=== PATIENT | female | born 1945 | race Caucasian/White ===

== ENCOUNTER → 2017-07-18 | Outpatient (CLI) | payer OTHER ==
[~2017-07-18] MED LIST: ADULT LOW DOSE81 MG PO; AMARYL4 MG PO; AZITHROMYCIN 6600 M1 PO; BACTRIM DS TAB1 EACH PO; BENICAR40 MG PO; BENTYL 10 MG CA10 M1 PO; CALCIUM 600 +1 EAC1 PO; CARDIZEM CD180 MG PO; CARDIZEM CD360 MG PO; CELEXA 20 MG TA20 MG PO; CENTRUM SILVER1 EAC4 PO; COUMADIN 3 MG TA3 MG PO; COUMADIN 5 MG TA5 M1 PO; D3 DOTS2000 UNIT PO; FISH OIL 1,0001 EAC5 PO; GLUCOPHAGE1000 MG PO; GLUCOPHAGE500 MG PO; LANSOPRAZOLE30 MG PO; LEVOTHROID PO; LEVOTHYROXINE100 MC1 PO; LIPITOR40 MG PO; LIPOFEN150 MG PO; LIPOFEN50 MG PO; LOMOTIL TABLET1 EACH PO; MAG-OX 400 TAB400 M1 PO; MAGNESIUM OXID200 MG PO; MINOCIN100 MG PO; NEURONTIN 300300 M1 PO; NORCO 10-325 T1 EACH PO; PREVACID 24HR15 MG PO; PYRIDIUM200 M2 PO; SYNTHROID100 MCG PO; TIROSINT25 MCG PO; VICODIN ES TAB1 EACH; XANAX 0.5 MG0.5 MG PO; XARELTO20 MG PO; [UNRECOGNIZED DRUG - OTHER] PO
== END ==
LOC: M.ULTRA 14:59
DX: I82.411 Acute embolism and thrombosis of right femoral vein (principal); Z88.8 Allergy status to other drugs, medicaments and biological substances

== ENCOUNTER → 2018-04-30 | Outpatient (CLI) | payer OTHER ==
[2018-04-30 12:05] LABS: CALCIUM 9.5 mg/dL (8.5-10.1); CREATININE 1.2 mg/dL (0.6-1.3); POTASSIUM 4.4 mmol/L (3.5-5.1)
== END ==
LOC: M.LAB 11:01
PROVIDERS: Registered Nurse
DX: I10 Essential (primary) hypertension (principal)

== ENCOUNTER → 2018-05-08 | Outpatient (CLI) | payer OTHER ==
--- NOTE | 2018-05-08 14:37 | 2DMMODE ---
[place] [address] 2 D/M-MODE ECHOCARDIOGRAM Name: KIERRA STANFORD Room: [facility]#: [id number] Admission: 05/08/18 Attend Phys: Daria Gandara Discharge: Date of : 49 Date of Service: 05/08/18 1437 Report #: [id number] THIS REPORT FOR: //name// APPROVED REPORT Study performed: 05/08/2018 09:28:12 EXAM: Comprehensive 2D, Doppler, and color-flow Echocardiogram Patient Location: Out-Patient BSA: 2.22 HR: 58 bpm BP: 128/52 mmHg Other Information Study Quality: Good Indications Atrial Fibrillation 2D Dimensions IVSd: 14.84 (7-11mm) LVOT Diam: 20.73 (18-24mm) LVDd: 45.67 mm PWd: 12.30 (7-11mm) Ascending Ao: 30.59 (22-36mm) LVDs: 28.20 (25-40mm) Aortic Root: 27.65 mm Volumes Left Atrial Volume (Systole) LA ESV Index: 28.50 mL/m2 Aortic Valve AoV Peak Juan Manuel.: 1.71 m/s AO Peak Gr.: 11.63 mmHg LVOT Max P.13 mmHg AO Mean Gr.: 5.55 mmHg LVOT Mean P.59 mmHg LVOT Max V: 1.33 m/s AO V2 VTI: 32.48 cm LVOT Mean V: 0.71 m/s FARZAD (VTI): 2.97 cm2 LVOT V1 VTI: 28.61 cm Mitral Valve E/A Ratio: 1.10 MV Decel. Time: 258.99 ms MV E Max Juan Manuel.: 0.75 m/s MV PHT: 75.11 ms MVA (PHT): 2.93 [place]2 [place] [address] 2 D/M-MODE ECHOCARDIOGRAM Name: KIERRA STANFORD Room: [facility]#: [id number] Admission: 05/08/18 Attend Phys: Daria Gandara Discharge: Date of : 49 Date of Service: 05/08/18 1437 Report #: [id number] TDI E/Lateral E': 6.82 E/Medial E': 7.50 Medial E' Juan Manuel.: 0.10 m/s Lateral E' Juan Manuel.: 0.11 m/s Pulmonary Valve PV Peak Juan Manuel.: 1.16 m/s PV Peak Gr.: 5.34 mmHg Tricuspid Valve RAP Estimate: 5.00 mmHg TR Peak Gr.: 23.11 mmHg RVSP: 28.11 mmHg PA Pressure: 28.11 mmHg Left Ventricle The left ventricle is normal size. There is normal LV segmental wall motion. Mild concentric left ventricular hypertrophy. Left ventricular systolic function is normal. LVEF is 55-60%. Transmitral Doppler flow pattern suggests impaired LV relaxation. Right Ventricle The right ventricle is normal size. The right ventricular systolic function is normal. Atria Left atrium is mildly dilated. The right atrium size is normal. Aortic Valve Aortic valve is mildly calcified. No aortic regurgitation is present. There is no aortic valvular stenosis. Mitral Valve Mild mitral annular calcification. There is no mitral valve regurgitation noted. No evidence of mitral valve stenosis. Tricuspid Valve The tricuspid valve is normal in structure. Mild tricuspid regurgitation. The RVSP is 35 mmHg. Pulmonic Valve The pulmonary valve is normal in structure. There is no pulmonic valvular regurgitation. Great Vessels The aortic root is normal in size. IVC [place] [address] 2 D/M-MODE ECHOCARDIOGRAM Name: KIERRA STANFORD Room: [facility]#: [id number] Admission: 05/08/18 Attend Phys: Daria Gandara Discharge: Date of : 49 Date of Service: 05/08/18 1437 Report #: [id number] collapses >50% with inspiration. Pericardium There is no pericardial effusion. <Conclusion> The left ventricle is normal size. Mild concentric left ventricular hypertrophy. Left ventricular systolic function is normal. LVEF is 55-60%. Transmitral Doppler flow pattern suggests impaired LV relaxation. Left atrium is mildly dilated. Aortic valve is mildly calcified. Mild mitral annular calcification. Mild tricuspid regurgitation. The RVSP is 35 mmHg. IVC is normal in size and collapses >50% with inspiration. <ELECTRONICALLY SIGNED> By: Blair Collins MD, FACC 05/08/18 1437 1437 1437 Blair Collins MD, FACC /INF
== END ==
LOC: M.CRD 09:00
DX: I07.1 Rheumatic tricuspid insufficiency (principal); I35.0 Nonrheumatic aortic (valve) stenosis; I48.0 Paroxysmal atrial fibrillation

== ENCOUNTER → 2019-06-07 | Outpatient (CLI) | payer OTHER ==
[~2019-06-07] VITALS: Ht 170.2 cm; Wt 111.6 kg
[2019-06-07] VITALS (7 sets, daily range): BP systolic 131–154; BP diastolic 64–76
[~2019-06-07] MED LIST changes: +ACIPHEX 20 MG T20 MG PO; -CARDIZEM CD180 MG PO; +DILTIAZEM 24HR240 M1 PO; -LIPITOR40 MG PO; +LIPITOR80 MG PO; +MIDAMOR 5MG TABL5 M1 PO; +NITROSTAT0.4 M1 SUBLING
[2019-06-07 10:20] LABS: HEMATOCRIT 38.8 % (37.0-47.0); HEMOGLOBIN 13.6 gm/dL (12.0-15.0); MCH 32.4 pg (26.0-34.0); MCHC 35.1 g/dL (28.0-37.0); MCV 92.5 fL (80.0-100.0); MPV 8.3 fl. (7.2-11.1); RBC 4.19 mil/uL (4.20-5.00); RDW-CV 13.1 % (10.5-14.5); WBC 7.1 thou/uL (4.0-11.0)
[2019-06-07 10:30] LABS: ANION GAP 11 mmol/L (7-16); APTT 25.2 Seconds (25.0-31.3); BUN 16 mg/dL (7-18); CALCIUM 8.9 mg/dL (8.5-10.1); CHLORIDE 104 mmol/L (98-107); CO2 27 mmol/L (21-32); CREATININE 1.2 mg/dL (0.6-1.3); GLUCOSE 125 mg/dL (70-99); INR 1.1; POTASSIUM 4.2 mmol/L (3.5-5.1); SODIUM 142 mmol/L (136-145)
[2019-06-07 10:34] LABS: ALBUMIN 3.7 g/dL (3.4-5.0); ALKALINE PHOSPHATASE 75 U/L (46-116); CHOLESTEROL 195 mg/dL (<200); HDL CHOLESTEROL 48 mg/dL (>40); LDL CHOLESTEROL 116 mg/dL (<100); SGOT 31 U/L (15-37); SGPT 34 U/L (30-65); TC:HDL 4.1 Ratio (Not establshd); TOTAL BILIRUBIN 0.5 mg/dL (<0.1-1.0); TOTAL PROTEIN 7.1 g/dL (6.4-8.2); TRIGLYCERIDE 159 mg/dL (<150); VLDL 32 mg/dL (<40)
[2019-06-07 10:35] LABS: SERUM ASSESSMENT Clear
--- NOTE | 2019-06-07 13:40 | CARD ---
[address] [address] CARDIAC CATH REPORT Name: KIERRA STANFORD [id number] Admission: 06/07/19 Attend Phys: Junaid Rodriguez MD, F Discharge: Date of : 49 Report #: [id number] THIS REPORT FOR: //name// cc: Bc Thomas Steve T. DO ~ APPROVED REPORT Study performed: 06/07/2019 10:05:37 Patient Details Patient Status: Out-Patient Room #: The patient is a 74 year-old female Event Personnel Junaid Rodriguez Welt Butter Hand, Krysta Carey Keeler Polygraph Operator, Rosy Joiner RN Keeler Polygraph Operator, Juliana Duong RTR Scrub, Kasandra Kay RTR Monitor Procedures Performed Art Access - R radial artery, Left Heart Cath w/or w/o Coronaries LHC , Hemostasis with Hemoband Indication Atrial fibrillation, Positive stress test, Chest pain Risk Factors Hypercholesterolemia, Coronary Artery DiseaseHypertension Admission/Lab Medications/Medications given during procedure Heparin Unfract., Oxygen Nasal cannula 2 l per min, Nitroglycerin IA bolus 600 mcg total, Verapamil IA bolus 7.5 mg total, Heparin IV bolus 5000 units Procedure Narrative The patient was brought electively to the Cardiac Catheterization Laboratory and was prepped and draped in a sterile manner. The right wrist was infiltrated with 2% Lidocaine subcutaneous anesthesia. A 6F Slender Mather sheath was inserted into the right radial artery. Coronary angiography was performed using coronary diagnostic catheters. The right coronary system was accessed and visualized with a 5F JR4 catheter. The left coronary system was accessed and visualized with a 5F JL3.5 catheter. The left ventricle was accessed and visualized with a 5F JR4 catheter. Left ventricular/Aortic Valve gradient assessed via catheter pullback. [place] [address] CARDIAC CATH REPORT Name: KIERRA STANFORD Room: [facility]#: [id number] Admission: 06/07/19 Attend Phys: Junaid Rodriguez MD, F Discharge: Date of : 49 Report #: [id number] with a 6 Fr 27cm Vasc TR band. The patient tolerated the procedure well and there were no complications associated with the procedure. There was no hematoma. Left ventricular pressures and pullback recorded only. No ventriculogram obtained. Due to spasm of the radial artery, recommend future cardiac catheterization by performed from the femoral artery. Intraoperative Conscious Sedation Sedation start time: 11:51 Case end Time: 12:20 Fentanyl 50 mcg Versed 4 mg Fluoro Time: 3.5 minutes Dose: DAP 70452 cGycm2 1300 mGy Contrast Type and Amount: Visipaque 50 ml Coronary Angiography The patient's coronary anatomy is right dominant. [place] Artery Percent Stenosis Left Main: 0 % Prox LAD: 30 % Mid/Distal LAD: 60 % Circumflex: 40 % RCA: 30 % Ramus: 50 % Left Ventriculography Left Ventriculography was not performed. Hemodynamics The aortic pressure is 144/71 mmHg with a mean of 97 mmHg. The left ventricular pressure is 145/10 mmHg with a mean of mmHg. The left ventricular end diastolic pressure is 20 mmHg. There was no gradient across the aortic valve upon pullback. Pullback from the left ventricle to the aorta revealed no gradient across the aortic valve. Conclusion 1. diffuse CAD with maximal stenosis of 60% in the mid lad, and 40% in the proximal circumflex artery. 2. suspect noncardiac chest pain and a false positive cardiolite stress test. Recommendations Aggressive Medical Therapy <ELECTRONICALLY SIGNED> By: Junaid Rodriguez MD, [facility] 06/07/19 1338 1338 [id number] Rodriguez MD, FACC /INF
--- NOTE | 2019-06-21 12:07 | EKG ---
[place] [address] ELECTROCARDIOGRAM REPORT Name: KIERRA STANFORD Room: [facility]#: [id number] Admission: 06/07/19 Attend Phys: Junaid Rodriguez MD Discharge: Date of : 49 Date of Service: 06/07/19 1020 Report #: [id number] THIS REPORT FOR: //name// [facility] Test Date: 2019-06-07 Test Time: 10:20:49 Pat Name: KIERRA STANFORD Department: Room: Gender: F Stock Buyer: : 1945 Requested By: Junaid Rodriguez Order Number: [id number] Reading MD: Junaid Rodriguez Measurements Intervals [place] Rate: 70 P: [place]: QRS: 50 QRSD: 64 T: 102 QT: 624 QTc: 674 Interpretive Statements Atrial fibrillation Abnormal R-wave progression, early transition Nonspecific T abnormalities, lateral leads Prolonged QT interval Compared to ECG 02/26/2016 10:09:01 T-wave abnormality now present Prolonged QT interval now present Sinus rhythm no longer present Electronically Signed On 06-07-2019 14:36:37 CDT by Junaid Rodriguez [email or web address] <ELECTRONICALLY SIGNED> By: Junaid Rodriguez MD, FACC 06/07/19 1436 1020 1020 Junaid Rodriguez MD, FAC /EPI
== END | disposition home or self-care (01) ==
LOC: M.CL 09:23
PROVIDERS: Internal Medicine Cardiovascular Disease
DX: R07.9 Chest pain, unspecified (principal); R94.39 Abnormal result of other cardiovascular function study; I25.10 Atherosclerotic heart disease of native coronary artery without angina pectoris; I48.91 Unspecified atrial fibrillation

== ENCOUNTER → 2019-08-16 | Outpatient (CLI) | payer OTHER ==
--- NOTE | 2019-08-26 07:23 | SLEEP ---
[address] [address] SLEEP STUDY REPORT Name: ABDOULAYEKIERRA J Room: [facility]#: [id number] Admission: 08/16/19 Attend Phys: Bc Thomas DO Discharge: Date of : 49 Report #: [id number] THIS REPORT FOR: //name// CC: Bc Thomas DO This study has been reviewed in its entirety by a board certified sleep specialist DATE OF SERVICE: 08/16/2019 HOME SLEEP STUDY ATTENDING PHYSICIAN: Bc Thomas DO. The patient is a 74-year-old, who weighs 250 pounds with a BMI of 39.2. The patient's [place] score was 2. The patient underwent home sleep study performed at [facility]. Total recording time was 498 minutes. During the night study, the patient had 7 obstructive apneas, no central or mixed apneas. There were 95 hypopneas. The patient's AHI was 12.8 per hour. No supine sleep recorded. Nocturnal oximetry study revealed an average oxygen saturation of 92% with lowest of 80%. 28 minutes were spent in oxygen saturation less than 90%. Mean heart rate was 59 beats per minute with a maximum of 93 beats per minute. IMPRESSION: 1. Mild obstructive sleep apnea at an AHI of 12.8 per hour. 2. Nocturnal hypoxia secondary to obstructive sleep apnea. RECOMMENDATIONS: 1. The patient has mild YUSUF. If the patient is clinically symptomatic or has comorbid conditions, then consider treatment of sleep apnea with either CPAP versus oral appliance. 2. Weight loss is strongly advised. 3. Avoid [employer] depressants. 4. Cautioned regarding driving until symptoms of sleep apnea resolve with the above recommendations. <ELECTRONICALLY SIGNED> By: Porter Chaing MD 08/26/19 0723 1655 1903Ageri Chiang MD /nt
== END ==
LOC: M.SLEEPLAB 11:00
DX: G47.33 Obstructive sleep apnea (adult) (pediatric) (principal); I10 Essential (primary) hypertension; I48.0 Paroxysmal atrial fibrillation; E66.01 Morbid (severe) obesity due to excess calories; R09.02 Hypoxemia

== ENCOUNTER → 2020-11-17 | Outpatient (CLI) | payer OTHER | LOC: M.LAB 12:26 | PROVIDERS: ATTEND Orthopaedic Surgery | DX: Z01.812 Encounter for preprocedural laboratory examination (principal); Z20.822 Contact with and (suspected) exposure to COVID-19 ==

== ENCOUNTER → 2020-12-25 | Outpatient (CLI) | payer OTHER ==
[~2020-12-25] MED LIST changes: +CARVEDILOL12.5 MG PO; +EUTHYROX112 MCG PO; +HIPREX1 GM PO; +NEURONTIN 300M300 M2 PO; +NEXIUM40 MG PO; +NORVASC5 MG PO; +SPIRONOLACTONE25 MG PO; +VITAMIN C1000 MG PO; +ZETIA10 MG PO; +ZINC50 M3 PO
== END ==
LOC: M.MRI 11:15
PROVIDERS: ATTEND Orthopaedic Surgery
DX: S83.241A Other tear of medial meniscus, current injury, right knee, initial encounter (principal); M25.461 Effusion, right knee; M71.21 Synovial cyst of popliteal space [Baker], right knee; M23.91 Unspecified internal derangement of right knee; X58.XXXA Exposure to other specified factors, initial encounter; Y93.89 Activity, other specified; Y92.89 Other specified places as the place of occurrence of the external cause; Y99.8 Other external cause status

== ENCOUNTER → 2021-01-12 | Outpatient (CLI) | payer OTHER ==
[2021-01-12 11:08] LABS: ABSOLUTE BASOPHILS 0.1 thou/uL (0.0-0.2); ABSOLUTE EOSINOPHILS 0.1 thou/uL (0.0-0.7); ABSOLUTE LYMPHOCYTES 1.1 thou/uL (0.8-5.3); ABSOLUTE MONOCYTES 0.5 thou/uL (0.0-1.2); BASOPHILS 1.1 %; EOSINOPHILS 1.8 %; HEMATOCRIT 36.3 % (37.0-47.0); HEMOGLOBIN 12.4 gm/dL (12.0-15.0); LYMPHOCYTES 16.2 %; MCH 31.8 pg (26.0-34.0); MCHC 34.2 g/dL (28.0-37.0); MCV 93.1 fL (80.0-100.0); MONOCYTES 7.6 %; MPV 7.8 fl. (7.2-11.1); NUCLEATED RBCS 0 /100WBC; PLATELET COUNT* 174 thou/uL (150-400); POLYS 73.3 %; RDW-CV 13.2 % (10.5-14.5); WBC 6.9 thou/uL (4.0-11.0)
[2021-01-12 11:19] LABS: URINE BILIRUBIN NEGATIVE (Negative); URINE BLOOD NEGATIVE (Negative); URINE CLARITY CLEAR; URINE COLOR YELLOW; URINE GLUCOSE-RANDOM NEGATIVE (Negative); URINE KETONES NEGATIVE (Negative); URINE LEUKOCYTES-REFLEX NEGATIVE (Negative); URINE NITRITE-REFLEX NEGATIVE (Negative); URINE PROTEIN TRACE (Negative); URINE SPECIFIC GRAVITY >= 1.030 (1.005-1.030); URINE UROBILINOGEN 0.2 E.U./dl (0.2-1.0)
[2021-01-12 11:20] LABS: ALBUMIN 3.7 g/dL (3.4-5.0); CALCIUM 9.2 mg/dL (8.5-10.1); POTASSIUM 4.6 mmol/L (3.5-5.1); TOTAL BILIRUBIN 0.6 mg/dL (<0.1-1.0); TOTAL PROTEIN 7.3 g/dL (6.4-8.2)
[2021-01-12 11:29] LABS: INR 1.1; PROTIME 11.6 Seconds (9.20-11.50)
[2021-01-12 11:35] LABS: CHOLESTEROL 171 mg/dL (<200); HDL CHOLESTEROL 44 mg/dL (>40); LDL CHOLESTEROL 97 mg/dL (<100); TC:HDL 3.9 Ratio (Not establshd); TRIGLYCERIDE 151 mg/dL (<150); VLDL 30 mg/dL (<40)
[2021-01-12 11:36] LABS: SERUM ASSESSMENT Clear
== END ==
LOC: M.LAB 09:32
PROVIDERS: ATTEND Orthopaedic Surgery
DX: Z01.818 Encounter for other preprocedural examination (principal); Z01.812 Encounter for preprocedural laboratory examination; M17.11 Unilateral primary osteoarthritis, right knee

== ENCOUNTER 2021-01-19 05:58 | Observation (INO) | payer OTHER ==
[~2021-01-19] VITALS: Ht 240 cm; Wt 108.9 kg
--- NOTE | ~2021-01-19 | OP ---
[address] [address] OPERATIVE REPORT Name: KIERRA STANFORD Room: [address] Jess#: [id number] Admission: 01/19/21 Attend Phys: Nicholas Torres Discharge: Date of : 49 Report #: [id number] THIS REPORT FOR: cc: Bc Thomas Steve T. DO Greiner, Robert F. II DO ~ DATE OF SURGERY: 01/19/2021 PREOPERATIVE DIAGNOSIS: Right knee osteoarthritis. POSTOPERATIVE DIAGNOSIS: Right knee osteoarthritis. PROCEDURE: Right total knee arthroplasty. SURGEON: DO SRINI Shaw II ASSISTANT: None. ANESTHESIA: Per operative record. ESTIMATED BLOOD LOSS: 50 mL. ANTIBIOTICS: Per operative record. DRAINS: None. COMPLICATIONS: None. CONDITION: The patient stable to recovery room. DESCRIPTION OF PROCEDURE: The patient was taken to operative suite, placed supine on the operating table, given appropriate anesthesia. A well-padded tourniquet was applied to the upper thigh, which was inflated to 300 mmHg after gravity exsanguination. The operative knee was sterilely prepped and draped. Surgery began by midline incision, was carried down to subcutaneous tissues. A medial parapatellar arthrotomy was performed and carried down to bone. Patella was then everted and excess soft tissue was removed from the femur. Femoral cutting block was then applied, checked with drop elana for rotational alignment, pinned in appropriate position, appropriate cuts were made. A 4-in-1 cutting block was then applied, checked for rotational alignment, pinned in appropriate position, appropriate cuts were made. The tibia was then exposed. Excess meniscus was removed. Retractor was placed on collateral ligaments. The tibial cutting block was then applied, pinned in appropriate position, checked with a drop rotational alignment and slope and appropriate cut was made. Tibial bone was removed. The tibial baseplate was then applied, checked for rotational alignment with the drop elana and pinned in appropriate position[place] [address] OPERATIVE REPORT Name: KIERRA STANFORD Room: [address] M[address]R.#: [id number] Admission: 01/19/21 Attend Phys: Nicholas Torres Discharge: Date of : 49 Report #: [id number] then applied and box cut was reamed. This was then trialed with appropriate spacer, which showed excellent fit and fill and excellent stability of the knee through all range of motion. The patella was reamed in appropriate fashion, sized to appropriate size. Three peg holes were drilled and it was then trialed and showed excellent flexion, extension, excellent tracking patella within the groove. These trials were then removed. The tibia was punched in appropriate fashion. Bone ends were cleansed with Pulsavac irrigation and cement was mixed, applied to final implants. These were then malleted into position, held the knee in extension and compressed to allow cement to cure. After it cured, excess was removed using Clarence and osteotome. The wound was then copiously irrigated and a final spacer was then malleted into position. Tourniquet was deflated. Hemostasis was maintained with electrocautery. Pain cocktail was injected. Capsule was closed with 2 FiberWire and 1 Vicryl in [id number] fashion. Skin was closed with 2-0 Vicryl in running 3-0 Monocryl. Dermabond and sterile dressing were applied. Warren wrap and PolarCare were applied. The patient was transported to recovery room in stable condition. Counts were correct throughout the procedure. By: [id number] Perry II, DO /nt
[2021-01-19 23:00] VITALS: BP 123/68
[2021-01-20 04:00] VITALS: BP 127/64
[2021-01-20 04:57] LABS: HEMATOCRIT 32.9 % (37.0-47.0); HEMOGLOBIN 11.2 gm/dL (12.0-15.0)
[2021-01-20 07:41] VITALS: BP 137/59
[2021-01-20 12:45] VITALS: BP 127/61
[2021-01-20 15:55] VITALS: BP 119/54
[2021-01-20 19:45] VITALS: BP 140/67
[2021-01-20 23:53] VITALS: BP 138/57
[2021-01-21 04:12] LABS: HEMATOCRIT 30.8 % (37.0-47.0); HEMOGLOBIN 10.6 gm/dL (12.0-15.0)
[2021-01-21 08:39] VITALS: BP 159/78
[2021-01-21 14:10] VITALS: BP 159/78
[2021-01-21 15:04] VITALS: BP 159/78
[2021-01-21 17:21] VITALS: BP 151/61
[2021-01-21 17:25] VITALS: BP 159/78
== END 2021-01-21 17:48 | disposition home health service (06) ==
LOC: M.ORTHSURG 05:58 → M.TBA 08:43 → M.ORTHSURG 10:21 → EDSTATUS 10:40 → M.ORTHSURG 10:48 → M.3W 21:03
PROVIDERS: Orthopaedic Surgery; ADMIT Internal Medicine; ATTEND Internal Medicine
DX: M17.11 Unilateral primary osteoarthritis, right knee (principal); Z20.822 Contact with and (suspected) exposure to COVID-19; Z87.891 Personal history of nicotine dependence; Z85.038 Personal history of other malignant neoplasm of large intestine; Z79.899 Other long term (current) drug therapy